=== PATIENT | male | born 1975 | race Caucasian/White ===

== ENCOUNTER 2016-12-17 23:24 | Emergency (ER) | payer SELFPAY ==
[~2016-12-17 23:24] MED LIST: NORCO 10/325 TA1 TAB PO; PEN-VEE K500 MG PO
[2016-12-18] MEDS ORDERED: NORCO 5-325 TA1 EACH PO (01:01)
[2016-12-18] MEDS ORDERED: SOMA350 M1 PO (01:01)
[2016-12-18] MEDS ORDERED: IBUPROFEN800 M1 PO (01:01)
== END 2016-12-18 02:54 ==
LOC: EDMED 23:24
DX: S39.012A Strain of muscle, fascia and tendon of lower back, initial encounter (principal); X58.XXXA Exposure to other specified factors, initial encounter
CPT/HCPCS: J1885; J2060; J2270; J2550; J3010